=== PATIENT | female | born 1990 | race African-American/Black ===

== ENCOUNTER 2025-04-20 21:15 | Emergency (ER) | payer MEDICAID ==
[~2025-04-20] VITALS: Ht 160 cm; Wt 70.0 kg
[~2025-04-20 21:15] MED LIST: DOCU-138 PO; FERR-43 PO; PREN-88 PO
[2025-04-21 01:25] VITALS: O2SAT 100
[2025-04-21 02:41] LABS: BASOPHILS % 0.4 % (0.0-2.0); EOSINOPHILS % 0.4 % (0.0-5.0); HEMATOCRIT. 35.9 % (36.0-48.0); HEMOGLOBIN. 12.3 g/dL (12.0-16.0); LYMPHOCYTES % 23.8 % (20.0-50.0); MEAN PLATELET VOLUME 9.5 fl (7.4-10.4); MONOCYTES % 5.7 % (2.0-8.0); NEUTROPHILS % 69.7 % (40.0-76.0); PLATELET 208 x1000/uL (130-400); RED BLOOD CELL COUNT 4.14 mill/uL (4.2-5.4); RED CELL DISTRIBUTION WIDTH 14.0 % (11.6-14.6)
[2025-04-21 03:09] LABS: CREATININE 0.6 mg/dL (0.6-1.0); UREA NITROGEN BLOOD 9 mg/dL (9-23)
[2025-04-21] MEDS: LIDOCAINE 5% PATCH TOP STA (03:21)
[2025-04-21 03:24] LABS: B-HCG QUANTITATIVE 9480 mIU/mL (<6)
[2025-04-21] MEDS ORDERED: ACET-2708 MT (03:27)
[2025-04-21] MEDS ORDERED: LIDO700A30 TP (03:27)
[2025-04-21 03:35] VITALS: BP 121/64; PULSE 74; RESP 19; TEMP 36.6; O2SAT 100
== END 2025-04-21 03:40 | disposition home or self-care (01) ==
LOC: ER 04-21 01:39
DX: O26.892 Other specified pregnancy related conditions, second trimester (principal); Z3A.16 16 weeks gestation of pregnancy; M54.50 Low back pain, unspecified; R10.2 Pelvic and perineal pain; Z79.899 Other long term (current) drug therapy; V49.40XA Driver injured in collision with unspecified motor vehicles in traffic accident, initial encounter; Y93.89 Activity, other specified; Y92.410 Unspecified street and highway as the place of occurrence of the external cause; Y99.8 Other external cause status
CPT/HCPCS: 36415; 80048; 84702; 85025; 86850; 86900; 99283